=== PATIENT | female | born 1980 | race African-American/Black ===

== ENCOUNTER 2020-07-28 21:08 | Emergency (ER) | payer SELFPAY ==
[~2020-07-28] VITALS: Ht 177.8 cm; Wt 77.0 kg
[2020-07-28 21:27] VITALS: BP 140/80
== END 2020-07-29 00:16 | disposition left against medical advice (07) ==
LOC: ER 21:08
DX: Z53.21 Procedure and treatment not carried out due to patient leaving prior to being seen by health care provider (principal)
CPT/HCPCS: 93005